=== PATIENT | male | born 2000 | race Caucasian/White ===

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

== ENCOUNTER 2020-02-18 05:05 | Emergency (ER) | payer MEDICAID ==
[~2020-02-18] VITALS: Ht 182.9 cm; Wt 84.1 kg
[2020-02-18 05:31] LABS: IMMATURE GRANULOCYTES 0.3 % (0.0-5.0); MEAN CORPUSCULAR HGB 29.9 pG CALC (26.0-32.0); MEAN CORPUSCULAR HGB CONC 32.5 g/dL CAL (32.0-36.0); NEUT# 8.76 thou/uL (1.82-7.42); RED BLOOD COUNT 5.22 mill/uL (4.70-6.10); RED CELL DISTRI WIDTH 12.6 % (11.5-15.5)
[2020-02-18 05:44] LABS: ALBUMIN 4.7 g/dL (3.2-5.0); ALKALINE PHOSPHATASE 96 u/l (38-126); AMYLASE 65 u/l (30-110); ANION GAP 11 (6-22 (CALC)); BILIRUBIN, TOTAL 0.8 mg/dL (0.0-1.4); BUN 11 mg/dL (8-21); BUN/CREATININE RATIO 17 (12-20 (CALC)); CARBON DIOXIDE 27 mmol/l (22-30); CHLORIDE 103 mmol/l (95-108); CREATININE 0.6 mg/dL (0.7-1.3); GFR > 60 ML/MIN (>=60 (CALC)); GFR FOR AFR.AMER. > 60 ML/MIN (>=60 (CALC)); LIPASE 42 u/l (23-300); POTASSIUM 3.5 mmol/l (3.5-5.1); SGOT/AST 39 u/l (17-59); SODIUM 137 mmol/l (137-146); TOTAL PROTEIN 7.9 g/dL (6.3-8.2)
[2020-02-18 05:45] LABS: HEMOGLOBIN 15.6 g/dl (14.0-18.0)
[2020-02-18 05:50] LABS: URINE BILIRUBIN - DIPSTICK NEGATIVE (NEGATIVE); URINE BLOOD DIPSTICK NEGATIVE (NEGATIVE); URINE COLOR YELLOW; URINE GLUCOSE - DIPSTICK NEGATIVE (NEGATIVE); URINE KETONE NEGATIVE (NEGATIVE); URINE LEUK ESTERASE NEGATIVE (NEGATIVE); URINE NITRITE - DIPSTICK NEGATIVE (Negative); URINE PH 6.5 (4.5-8.0); URINE PROTEIN - DIPSTICK NEGATIVE (NEG-TRACE); URINE UROBILINOGEN - DIPSTICK 0.2 E.U./dL (0.2)
[2020-02-18 06:00] LABS: MYOGLOBIN 28 ng/mL (0 - 121)
[2020-02-18] MEDS ORDERED: PEPCID20 MG PO (06:13)
[2020-02-18 06:15] VITALS: BP 129/64
== END 2020-02-18 06:27 | disposition home or self-care (01) | DRG 392 ==
LOC: ED 05:05
PROVIDERS: Family Medicine
DX: K21.9 Gastro-esophageal reflux disease without esophagitis (principal); Z20.828 Contact with and (suspected) exposure to other viral communicable diseases

== ENCOUNTER 2020-03-11 08:16 | Emergency (ER) | payer MEDICAID ==
[~2020-03-11] VITALS: Ht 182.9 cm; Wt 84.0 kg
[~2020-03-11 08:16] MED LIST changes: +PEPCID20 MG PO
[2020-03-11 10:49] VITALS: BP 122/88
== END 2020-03-11 10:54 | disposition home or self-care (01) | DRG 605 ==
LOC: ED 08:16
DX: S20.212A Contusion of left front wall of thorax, initial encounter (principal); V48.5XXA Car driver injured in noncollision transport accident in traffic accident, initial encounter

== ENCOUNTER 2021-03-22 15:09 | Emergency (ER) | payer MEDICAID ==
[~2021-03-22] VITALS: Ht 182.9 cm; Wt 84.0 kg
[2021-03-22] MEDS ORDERED: BACTRIM DS1 TAB PO (19:09)
[2021-03-22] MEDS ORDERED: KEFLEX500 MG PO (19:09)
[2021-03-22 19:35] VITALS: BP 120/70
== END 2021-03-22 19:35 | disposition home or self-care (01) ==
LOC: ED 15:09
DX: L02.611 Cutaneous abscess of right foot (principal); L03.115 Cellulitis of right lower limb; B95.61 Methicillin susceptible Staphylococcus aureus infection as the cause of diseases classified elsewhere

== ENCOUNTER 2021-03-24 14:57 | Emergency (ER) | payer MEDICAID ==
[~2021-03-24 14:57] MED LIST changes: +BACTRIM DS1 TAB PO; +KEFLEX500 MG PO
== END 2021-03-24 16:21 | disposition left against medical advice (07) | DRG 951 ==
LOC: ED 14:57 → LWOBS 16:21
DX: Z53.21 Procedure and treatment not carried out due to patient leaving prior to being seen by health care provider (principal)